=== PATIENT | male | born 1945 | race Caucasian/White ===

== ENCOUNTER 2018-01-11 09:46 | Emergency (ER) | payer OTHER ==
[~2018-01-11] VITALS: Wt 77.1 kg
[2018-01-11] MEDS ORDERED: PROSCAR5 MG PO (10:13)
[2018-01-11] MEDS ORDERED: FLOUXETINE PO (10:13)
[2018-01-11] MEDS ORDERED: COUMADIN5 MG PO (10:13)
[2018-01-11] MEDS ORDERED: ALLOPURINOL300 MG PO (10:14)
[2018-01-11] MEDS ORDERED: LOSARTAN POTAS100 MG PO (10:14)
[2018-01-11] MEDS ORDERED: TAMS0.4C PO (10:14)
== END 2018-01-11 16:29 | disposition home or self-care (01) ==
LOC: ER 09:46
DX: M79.661 Pain in right lower leg (principal)